=== PATIENT | male | born 1965 | race Caucasian/White ===

== ENCOUNTER 2016-12-07 14:53 | Emergency (ER) | payer MEDICARE, MEDICAID ==
[~2016-12-07] VITALS: Ht 185.4 cm; Wt 104.5 kg
[~2016-12-07 14:53] MED LIST: BACT800T5 PO; CEPH-460 PO; CLON0.2T PO; ULTR50TA5 PO
[2016-12-07 14:54] VITALS: BP 165/98; PULSE 82; RESP 18; TEMP 97.8; O2SAT 97
--- NOTE | 2016-12-07 15:00 | PD ---
Physical Exam Time Seen by Provider: 14:59 Narrative 51yo M c/o shards of tile in bottom of L foot x1 weeks. Denies F,V. Up to date on tetanus vaccination. Patient seen in triage. VS reviewed. Awaiting bed placement. Data Data Last Documented VS Vital Signs Date Time Temp Pulse Resp B/P Pulse Ox O2 Delivery O2 Flow Rate FiO2 12/07/16 14:54 97.8 82 18 165/98 97 Room Air MDM Supervised Visit with EARL: Tiny Patel December 07, 2016 15:00
--- NOTE | 2016-12-07 15:37 | PD ---
HPI . Left foot pain for over a week Chief Complaint: Musculoskeletal Complaint Time Seen by Provider: 15:34 Travel History International Travel<30 days: No Contact w/Intl Traveler<30days: No Traveled to known affect area: No History of Present Illness HPI 51-year-old male here with complaints of left foot pain for over a week. Patient says he was doing some tile work in his house and he thinks he may have stepped on some and it is stuck in his left foot. He tells me that he has had similar issues in the past and had to have the lumps removed. He is up to date on his tetanus. [facility] Past Medical History Diminished Hearing: No Hypertension: Yes Kidney Stones: Yes Immunizations Current: Yes Past Surgical History Tonsillectomy: Yes ( A CHILD) Social History Alcohol Use: Yes ([facility]) Tobacco Use: No Substance Use: No Allergies-Medications (Allergen,Severity, Reaction): Coded Allergies: No Known Allergies (Verified , 06/26/16) Reported Meds & Prescriptions Reported Meds & Active Scripts Active Ultram (Tramadol HCl) 50 Mg Tab 50 Mg PO Q6H PRN Keflex (Cephalexin) 500 Mg Cap 500 Mg PO Q6H 5 Days Bactrim DS (Sulfamethoxazole-Trimethoprim) 800-160 Mg Tab 1 Tab PO BID Reported Clonidine (Clonidine HCl) 0.2 Mg Tab 0.2 Mg PO BID Review of Systems General / Constitutional: No: Fever Eyes: No: Visual changes HENT: No: Headaches Cardiovascular: No: Chest Pain or Discomfort Respiratory: No: Shortness of Breath Gastrointestinal: No: Abdominal Pain Genitourinary: No: Dysuria Musculoskeletal: Positive: Pain (left foot pain) Skin: No Rash Neurologic: No: Weakness Psychiatric: No: Depression Endocrine: No: Polydipsia Hematologic/Lymphatic: No: Easy Bruising Physical Exam Narrative GENERAL: AAO x 3, no acute distress, Well-nourished, Disheveled appearance. SKIN: Warm and dry. No visible rashes or bruising. No visible abnormality of the feet bilaterally. Left foot without any evidence of foreign body or wound. No palpable masses or lumps. Patient does have tenderness on the plantar surface of his left midfoot area. HEAD: Normocephalic and atraumatic. EYES: No scleral icterus. No injection or drainage. ENT: No nasal drainage noted. Mucous membranes pink. Airway patent. NECK: Supple, trachea midline. No JVD. CARDIOVASCULAR: Regular rate and rhythm without murmurs, gallops, or rubs. RESPIRATORY: Breath sounds equal bilaterally. No accessory muscle use. No rhonchi or rales. GASTROINTESTINAL: Abdomen soft, non-tender, nondistended. EXTREMITIES: No cyanosis or edema. Full range of motion bilateral feet. Toes move normally bilaterally. Tenderness to the plantar surface of the midfoot left side. NEURO: strength in b/l LE 5/5 BACK: Nontender without obvious deformity. No CVA tenderness. PSYCH: AAO x 3, normal affect. Data Data Last Documented VS Vital Signs Date Time Temp Pulse Resp B/P Pulse Ox O2 Delivery O2 Flow Rate FiO2 12/07/16 14:54 97.8 82 18 165/98 97 Room Air Orders Foot, Complete ([id number]) (12/07/16 16:05) MDM Medical Decision Making Medical Screen Exam Complete: Yes Emergency Medical Condition: Yes Medical Record Reviewed: Yes Differential Diagnosis Left foot pain acute on chronic, less likely foreign body, start of a plantar wart Narrative Course 51-year-old male here with complaints of left foot pain and possible foreign body. I've done a full examination of his foot and I do not see any evidence of foreign body, wound or abnormality. I'll check an x-ray to rule out any type of foreign body that is evident on x- ray. I've explained to patient that unfortunately I cannot go and perform exploratory surgery looking for foreign bodies within his plantar surface of his foot. If x-rays are negative, he will need to follow-up with the fur operator for further workup and treatment. I believe he has early plantar's warts. He can use [id number] Tylenol or Motrin as needed. Patient verbalized understanding of instructions, questions were answered, and thanked me for their care. I advised them if their condition worsens, please return to the nearest emergency room for further care. Diagnosis Primary Impression: Left foot pain Patient Instructions: General Instructions Additional Instructions: You can use [id number] Tylenol or Motrin as needed for pain. Please follow-up with a fur operator for further workup and recommendations. Disposition: 01 DISCHARGE HOME Condition: Stable Kasia Cates December 07, 2016 15:37 Kasia Cates December 07, 2016 15:37
--- NOTE | 2016-12-07 16:23 | RADRPT ---
EXAM DATE/TIME: 12/07/2016 16:10 [facility] COMPARISON: No previous studies available for comparison. INDICATIONS : Foreign body, left foot pain. MEDICAL HISTORY : None. SURGICAL HISTORY : None. ENCOUNTER: Initial ACUITY: 1 week PAIN SCORE: 10/10 LOCATION: Left middle plantar surface. FINDINGS: There is mild arthritic change most notably at the first MTP joint. A small plantar heel spur is iden tified. There is no evidence of fracture, dislocation or bony destruction. No radiodense foreign body is appreciated. CONCLUSION: No acute bony findings Dominic Quiles MD on December 07, 2016 at 16:21 Board Certified Radiologist. This report was verified electronically.
== END 2016-12-07 16:42 | disposition home or self-care (01) ==
LOC: NEPK 14:53
DX: M79.672 Pain in left foot (principal); I10 Essential (primary) hypertension
CPT/HCPCS: 73630; 99283

== ENCOUNTER 2016-12-22 17:58 | Emergency (ER) | payer MEDICARE, MEDICAID ==
[~2016-12-22] VITALS: Ht 185.4 cm; Wt 105.0 kg
[2016-12-22 18:00] VITALS: BP 206/106; PULSE 70; RESP 20; TEMP 97.4; O2SAT 98
--- NOTE | 2016-12-22 18:09 | PD ---
Physical Exam Date Seen by Provider: Dec 22, 2016 Time Seen by Provider: 18:07 Data Data Last Documented VS Vital Signs Date Time Temp Pulse Resp B/P Pulse Ox O2 Delivery O2 Flow Rate FiO2 12/22/16 18:00 97.4 70 20 206/106 98 Room Air [facility] Supervised Visit with EARL: No Narrative Course 51 YO male with complaint of "broken finger" on the left hand. Caught finger under a heavy box this morning. Also requests BP med refill. Vitals reviewed. Awaiting bed placement. Kristin Haile Dec 22, 2016 18:09
[2016-12-22 20:22] VITALS: BP 221/109; PULSE 81; RESP 20; TEMP 97.7; O2SAT 97
[2016-12-22] MEDS ORDERED: oxyCODONE/ACETAMINOPHEN 5 MG/325 MG TAB PO ONE (21:00)
[2016-12-22] MEDS ORDERED: cloNIDine HCL 0.1 MG TAB PO ONE (21:00)
--- NOTE | 2016-12-22 21:05 | PD ---
HPI Chief Complaint: Injury Time Seen by Provider: 20:25 Travel History International Travel<30 days: No Contact w/Intl Traveler<30days: No Traveled to known affect area: No History of Present Illness HPI 51yo M with PMH of HTN presents to the ED with c/o left hand pain. States pain is his left middle finger when he was lifting boxes and thinks he pulled it a certain way. Pain is worst with movement. Pt also has history of HTN and was on clonidine 0.3mg 2 years ago and has not had any medication since then. Pt has intermittent, occipital headache for 1 month. Denies any fever, chest pain , sob, n/v, abdominal pain, focal weakness or numbness. PFSH Past Medical History Cardiovascular Problems: Yes (HTN) Diminished Hearing: No Hypertension: Yes Kidney Stones: Yes Immunizations Current: Yes Past Surgical History Tonsillectomy: Yes ( A CHILD) Social History Alcohol Use: Yes ([facility]) Tobacco Use: No Substance Use: No Allergies-Medications (Allergen,Severity, Reaction): Coded Allergies: No Known Allergies (Verified , 12/22/16) Reported Meds & Prescriptions Reported Meds & Active Scripts Active No Active Prescriptions or Reported Medications Review of Systems Except as stated in HPI: all other systems reviewed are Neg Physical Exam Narrative GENERAL: 51yo M not in distress. SKIN: Focused skin assessment warm/dry. HEAD: Atraumatic. Normocephalic. EYES: Pupils equal and round at 3mm bilaterally. EOMI. No scleral icterus. No injection or drainage. ENT: No nasal bleeding or discharge. Mucous membranes pink and moist. NECK: Trachea midline. No JVD. CARDIOVASCULAR: Regular rate and rhythm. No murmur appreciated. RESPIRATORY: No accessory muscle use. Clear to auscultation. Breath sounds equal bilaterally. GASTROINTESTINAL: Abdomen soft, non-tender, nondistended. No rebound tenderness or guarding. MUSCULOSKELETAL: Left hand: Mild erythema in left 3rd MCP. +TTP. No fluctuance. Able to flex and extend in all digits. cap refill <2sec. Sensation intact. Muscle strength intact. NEUROLOGICAL: Awake and alert. No obvious cranial nerve deficits. Motor grossly within normal limits. Normal speech. PSYCHIATRIC: Appropriate mood and affect; insight and judgment normal. Data Data Last Documented VS Vital Signs Date Time Temp Pulse Resp B/P Pulse Ox O2 Delivery O2 Flow Rate FiO2 12/22/16 20:22 77 18 97 Room Air 12/22/16 20:22 97.7 221/[address] Brain W/O Iv Contrast(Rout) (12/22/16 ) Hand, Limited (2vws) (12/22/16 ) Clonidine (Catapres) (12/22/16 21:00) Oxycodone-Acetamin 5-325 Mg (Percocet (12/22/16 21:00) MDM Medical Decision Making Medical Screen Exam Complete: Yes Emergency Medical Condition: Yes Differential Diagnosis Contusion vs. fracture vs. hypertensive emergency Narrative Course 51yo M with HTN noncompliant with medication here with c/o left third finger pain after lifting a box. States his finger went sideways which may have been a dislocation but now it is in the right place. There is mild erythema on 3rd MCP so it may be early cellulitis. Will cover with a few days of antibiotics. Xray of left hand showed arthritis changes. No evidence of acute bony injury. CT brain showed normal examination. Pt given clonidine 0.1mg and percocet 5- 325. Pt reevaluated at bedside and pain has improved. Headache has resolved. No focal neurologic deficits. Headache may be related to elevated blood pressure. Repeat blood pressure is 164/99. Pt now states he was also on lisinopril 10mg before so will prescribe lisinopril for a few days until pt can follow up with PMD. Diagnosis Primary Impression: Uncontrolled hypertension Patient Instructions: General Instructions Departure Forms: Tests/Procedures Additional Instructions: Please follow up with your primary care physician in 3-7 days regarding your blood pressure control. There is mild erythema on your finger, will start to on antibiotics but return to the ED if symptoms worsen. Med/Other Pt SpecificInfo: Prescription(s) given Scripts Lisinopril 10 Mg Tab10 Mg PO DAILY 14 Days Ref 0 Prov:Anel Chung DO 12/22/16 Ibuprofen 600 Mg [id number] Mg PO Q8HR PRN (PAIN) #20 TAB Ref 0 Prov:Lyn Chungie 12/22/16 Cephalexin (Keflex)500 Mg [id number] Mg PO Q12H 7 Days Ref 0 Prov:Anel Chung DO 12/22/16 Disposition: 01 DISCHARGE HOME Condition: Stable Anel Chung DO Dec 22, 2016 21:05
--- NOTE | 2016-12-22 21:44 | RADRPT ---
EXAM DATE/TIME: 12/22/2016 20:52 [facility] COMPARISON: No previous studies available for comparison. INDICATIONS : Left posterior hand pain, injured moving boxes MEDICAL HISTORY : None. SURGICAL HISTORY : None. ENCOUNTER: Initial ACUITY: 1 day PAIN SCORE: 9/10 LOCATION: Left Hand FINDINGS: There is no evidence of fracture or dislocation. There are arthritic changes most notably involving t he fourth finger and the thumb carpal joint region. CONCLUSION: Arthritic changes. No evidence of acute bony injury Dominic Quiles MD on December 22, 2016 at 21:42 Board Certified Radiologist. This report was verified electronically.
--- NOTE | 2016-12-22 21:46 | RADRPT ---
EXAM DATE/TIME: 12/22/2016 20:55 [facility] COMPARISON: No previous studies available for comparison. INDICATIONS : Patient complains of headache. RADIATION DOSE: 41.76 CTDIvol (mGy) MEDICAL HISTORY : Hypertension. SURGICAL HISTORY : None. ENCOUNTER: Initial ACUITY: 1 day PAIN SCALE: 5/10 LOCATION: cranial TECHNIQUE: Multiple contiguous axial images were obtained of the head. Using automated exposure control and adj ustment of the mA and/or kV according to patient size, radiation dose was kept as low as reasonably a chievable to obtain optimal diagnostic quality images. FINDINGS: CEREBRUM: The ventricles are normal for age. No evidence of midline shift, mass lesion, hemorrhage or acute in farction. No extra-axial fluid collections are seen. POSTERIOR FOSSA: The cerebellum and brainstem are intact. The 4th ventricle is midline. The cerebellopontine angle i s unremarkable. EXTRACRANIAL: The visualized portion of the orbits is intact. SKULL: The calvaria is intact. No evidence of skull fracture. CONCLUSION: Normal examination. Dominic Quiles MD on December 22, 2016 at 21:42 Board Certified Radiologist. This report was verified electronically.
[2016-12-22 22:14] VITALS: BP 148/93; PULSE 72; RESP 18; O2SAT 97
[2016-12-22] MEDS ORDERED: CEPH-460 PO (22:17)
[2016-12-22] MEDS ORDERED: IBUP-232 PO (22:17)
[2016-12-22] MEDS ORDERED: LISI10TA3 PO (22:17)
== END 2016-12-22 22:33 | disposition home or self-care (01) ==
LOC: NEPE 17:58
DX: I10 Essential (primary) hypertension (principal); M79.642 Pain in left hand; R51 Headache
CPT/HCPCS: 70450; 73120

== ENCOUNTER 2018-05-07 01:02 | Observation (INO) ==
[2018-05-07] MEDS ORDERED: Sodium Chlor 0.9% Inj 500 ML IV.SIG ONE (01:24)
--- NOTE | 2018-05-07 01:32 | ED ---
HPI General Chief complaint: Chest Pain Stated complaint: chest pain Time Seen by Provider: 05/07/18 01:09 Source: patient Mode of arrival: EMS Limitations: no limitations History of Present Illness HPI narrative: The patient is a 53 year old male who presents to the [facility] emergency department with a history of chest pain that he reports began at approximately midnight when he was discharged from the [facility]. The patient reports that the pain is in the left side of his chest. He reports that it feels like his heart muscle is "swollen". He denies having any associated shortness of breath. He reports that the pain radiates into the left arm. He denies having any vomiting, however he reports having associated nausea without vomiting. He denies having any diaphoresis. He reports that he was arrested earlier in the day at approximately 3-4 PM. He reports that earlier in the day he also is having a headache. He reports that the headache has continued. He reports that the headache is bitemporal. He reports that he had headaches in the past related to his high blood pressure. He reports that he was on clonidine in the past, however he has not been on any blood pressure medication in the last few years. He denies any prior history of hyperlipidemia or diabetes mellitus. He denies any family history of heart disease. He denies any prior history of coronary artery disease. He denies having any prior history of DVT or PE. On review of systems otherwise, the patient denies having any known recent fevers, cough, congestion, neck pain, abdominal pain, diarrhea, urinary symptoms, or neurologic symptoms. Related Data Home Medications Medication Instructions Recorded Confirmed No Known Home Medications 05/07/18 05/07/18 Allergies Allergy/AdvReac Type Severity Reaction Status Date / Time No Known Allergies Allergy Verified 05/07/18 01:08 Review of Systems ROS: all other systems reviewed are negative [facility] Medical History Medical History Hypertension (Acute) Social History Social History Substance History: No History of Abuse Second Hand Smoke Exposure: No Smoking Status: Never smoker How Often Do You Have a Drink Containing Alcohol: 2 to 4 times a month Recent Travel in [facility] within the Last 8 Weeks: No Recent Out of Country Travel within the Last 8 Weeks: No Immunization History Tetanus Immunization: <5 Years Tetanus Immunization Year if Known: 2016 Exam Const General: cooperative, no acute distress and well developed Nutritional Appearance: well nourished Orientation: alert, awake and oriented x3 [facility] Head: normocephalic and atraumatic Nose: no nasal discharge and no epistaxis Mouth: moist mucous membranes Throat: posterior oropharynx normal and uvula midline Eyes Sclera: normal sclerae Pupils: PERRL Neck Neck: no meningeal signs, trachea midline and no JVD Resp Effort & Inspection: no use of accessory muscles Auscultation: clear to auscultation bilaterally Cardio Rate: regular rate Rhythm: regular rhythm Heart Sounds: no murmurs GI Inspection: non-distended Palpation: soft, no hepatosplenomegaly and nontender Skin General: dry skin (warm) Neuro General: alert, awake, oriented x3 and other (grossly non-focal.) Speech: speech normal Motor: no movement abnormalities noted Extrem General: normal to inspection (2+ pulses in all 4 extremities.), no calf tenderness, no clubbing, no cyanosis and no edema Psych Mood: congruent mood Affect: normal affect Judgment: judgment good Course Initial Documented Vital Signs Pulse Rate 88 05/07/18 01:04 Respiratory Rate 17 05/07/18 01:04 Blood Pressure 179/101 H 05/07/18 01:04 Pulse Oximetry 97 05/07/18 01:04 Last Documented Vital Signs Temperature 98.8 F 05/07/18 01:08 Pulse Rate 75 05/07/18 04:00 Respiratory Rate 16 05/07/18 04:00 Blood Pressure 156/85 H 05/07/18 04:00 Pulse Oximetry 97 05/07/18 04:00 Medical Decision Making [facility] Narrative Medical decision making narrative: During the course of the patient's emergency department visit, the patient's history, examination, and differential diagnosis were reviewed with the patient. The patient was placed on a cardiac monitor technician with oximetry and frequent blood pressure monitoring. The patient had IV access obtained and blood work sent for analysis. A diagnostic evaluation was started regarding the patient's chest pain. The patient was initially provided aspirin 324 mg p.o. was given by ambulance services prior to arrival along with sublingual nitroglycerin x3. Nitroglycerin paste was applied to the chest wall in the emergency department. The patient was given Zofran 4 mg IV for nausea. The patient's diagnostic studies are remarkable for a white count of 5.6, hemoglobin 14.7, platelets 74 with 71.5 neutrophils, PT 12, PTT 25.5. Platelet count is compared to a prior platelet count done at this facility and was low at that time at 84 consistent with chronic thrombocytopenia. Chemistries remarkable for a normal troponin I, lipase is elevated at 623, mildly elevated at 623. Patient denies having any abdominal pain, however he does have nausea. A CT scan of the abdomen and pelvis was ordered to evaluate for possible underlying and chronic inflammation. CPK within normal limits, chloride 108, calcium 8.2, AST 79, ALT 99 suspicious for viral hepatitis. The patient's chest x-ray reveals no acute cardiopulmonary disease, CT scan of the brain shows no acute abnormality, CT scan of the abdomen and pelvis reveals evidence of cirrhosis with an enlarged cirrhotic appearing liver, splenomegaly with varices, nonobstructing renal stone, left renal cyst. No signs of pancreatic abnormality. The patient will be admitted to the chest pain center for rule out serial cardiac enzyme protocol followed by stress testing. The patient's results were discussed with the patient, including the plan of care. I explained that further testing and/ or monitoring is indicated based on the patient's history, examination, and/ or laboratory findings. Therefore, I recommended admission for additional evaluation. The patient expressed understanding and was agreeable with this plan. The patient was admitted to the hospital in stable condition and sent to a bed under the care of the [facility]. Medical Screen Exam Complete: Yes Emergency Medical Condition: Yes Differential Diagnosis Differential Diagnosis: Acute coronary syndrome, versus pneumothorax, versus hypertensive emergency Medical Records Medical records reviewed: Yes I reviewed the patient's medical records. Lab Data Lab results reviewed: Yes I reviewed the patient's lab results. Result diagrams: 05/07/18 01:30 05/07/18 01:30 Lab Results 05/07/18 05/07/18 05/07/18 Range/Units 01:30 01:30 01:30 WBC 5.6 (4.0-11.0) th/mm3 RBC 4.72 (4.50-5.90) mil/mm3 Hgb 14.7 (13.0-17.0) gm/dL Hct 42.1 (39.0-51.0) % MCV 89.2 (80.0-100.0) fL MCH 31.1 (27.0-34.0) pg MCHC 34.9 (32.0-36.0) % RDW 14.8 (11.6-17.2) % Plt Count 74 L (150-450) th/mm3 MPV 10.1 (7.0-11.0) fL Prelim Diff (Auto) Slide review pending Neut % (Auto) 71.5 H (16.0-70.0) % Lymph % (Auto) 19.6 (9.0-44.0) % [place] % (Auto) 6.3 (0.0-8.0) % Eos % (Auto) 2.1 (0.0-4.0) % Baso % (Auto) 0.5 (0.0-2.0) % Neut # (Auto) 4.0 (1.8-7.7) th/mm3 Lymph # (Auto) 1.1 (1.0-4.8) th/mm3 [place] # (Auto) 0.4 (0.0-0.9) th/mm3 Eos # (Auto) 0.1 (0.0-0.4) th/mm3 Baso # (Auto) 0.0 (0.0-0.2) th/mm3 WBC Differential . Diff Scan Auto diff confirmed Differential Comment . Platelet Estimate Low L (Normal) Platelet Morphology Normal (Normal) PT 12.0 H (9.8-11.6) sec INR 1.2 Ratio APTT 25.5 (24.3-30.1) sec Sodium 141 (136-145) meq/L Potassium 3.9 (3.5-5.1) meq/L Chloride 108 H (98-107) meq/L Carbon Dioxide 27.9 (21.0-32.0) meq/L Anion Gap 5 (5-15) meq/L BUN 14 (7-18) mg/dL Creatinine 0.80 (0.60-1.30) mg/dL Estimated GFR Greater than 89 (>89) mL/min Random Glucose 90 (74-106) mg/dL Calcium 8.2 L (8.5-10.1) mg/dL Magnesium 2.0 (1.5-2.5) mg/dL Total Bilirubin 0.6 (0.2-1.0) mg/dL AST 79 H (15-37) U/L ALT 99 H (12-78) U/L Alkaline Phosphatase 88 (45-117) U/L Total Creatine Kinase 154 (39-308) U/L CK-MB (CK-2) 1.9 (0.5-3.6) ng/mL Troponin I Less than 0.02 L (0.02-0.05) ng/mL Total Protein 7.5 (6.4-8.2) g/dL Albumin 3.6 (3.4-5.0) g/dL Lipase 623 H (73-393) U/L 05/07/18 Range/Units 04:40 WBC (4.0-11.0) th/mm3 RBC (4.50-5.90) mil/mm3 Hgb (13.0-17.0) gm/dL Hct (39.0-51.0) % MCV (80.0-100.0) fL MCH (27.0-34.0) pg MCHC (32.0-36.0) % RDW (11.6-17.2) % Plt Count (150-450) th/mm3 MPV (7.0-11.0) fL Prelim Diff (Auto) Neut % (Auto) (16.0-70.0) % Lymph % (Auto) (9.0-44.0) % [place] % (Auto) (0.0-8.0) % Eos % (Auto) (0.0-4.0) % Baso % (Auto) (0.0-2.0) % Neut # (Auto) (1.8-7.7) th/mm3 Lymph # (Auto) (1.0-4.8) th/mm3 [place] # (Auto) (0.0-0.9) th/mm3 Eos # (Auto) (0.0-0.4) th/mm3 Baso # (Auto) (0.0-0.2) th/mm3 WBC Differential Diff Scan Differential Comment Platelet Estimate (Normal) Platelet Morphology (Normal) PT (9.8-11.6) sec INR Ratio APTT (24.3-30.1) sec Sodium (136-145) meq/L Potassium (3.5-5.1) meq/L Chloride (98-107) meq/L Carbon Dioxide (21.0-32.0) meq/L Anion Gap (5-15) meq/L BUN (7-18) mg/dL Creatinine (0.60-1.30) mg/dL Estimated GFR (>89) mL/min Random Glucose (74-106) mg/dL Calcium (8.5-10.1) mg/dL Magnesium (1.5-2.5) mg/dL Total Bilirubin (0.2-1.0) mg/dL AST (15-37) U/L ALT (12-78) U/L Alkaline Phosphatase (45-117) U/L Total Creatine Kinase 126 (39-308) U/L CK-MB (CK-2) (0.5-3.6) ng/mL Troponin I Less than 0.02 L (0.02-0.05) ng/mL Total Protein (6.4-8.2) g/dL Albumin (3.4-5.0) g/dL Lipase (73-393) U/L Imaging Data Radiologist's impression: Chest X-Ray 05/07/18 01:24 CONCLUSION: No acute abnormality is seen. Head CT 05/07/18 01:24 CONCLUSION: No intracranial abnormality is seen. . Abdomen/Pelvis CT 05/07/18 02:29 CONCLUSION: 1. Enlarged cirrhotic appearing liver with suspected hepatic steatosis. 2. Splenomegaly with varices. The splenomegaly is likely from portal hypertension. 3. Nonobstructing renal stone seen bilaterally. 4. Left renal cysts ECG Data Attestation: I personally reviewed and interpreted this ECG as follows: Interpretation: The patient had an EKG done on arrival. The patient's EKG shows a sinus rhythm heart rate of 77, QRS duration 102 ms, QTC [address] segment elevation. Discharge Plan Discharge Disposition Patient Disposition: 30 Still Patient Discharge Details Diagnosis: Chest pain, rule out acute myocardial infarction Physicians Team ED Provider: Mel Ryan Primary Care Provider: Primary Care Georgette Levy Attending Provider: Victor Manuel Clarke Status ED Status: Left Department Discharge Information Discharge Date/Time: 05/07/18 05:00
--- NOTE | 2018-05-07 01:40 | XR ---
EXAM DATE: 05/07/2018 1:24 AM EDT AGE/SEX: 53 years / Male INDICATIONS: Chest pain and headache. CLINICAL DATA: This is the patient's initial encounter. Patient reports that signs and symptoms have been present for 1 day and indicates a pain score of 6/10. MEDICAL/SURGICAL HISTORY: Hypertension. None. COMPARISON: No prior exams available for comparison. FINDINGS: The heart size is normal. The lungs are free of focal consolidation. There is a calcified granuloma a t the lateral left base. No effusion is seen. There is degenerative change at the glenohumeral joints . CONCLUSION: No acute abnormality is seen. Electronically signed by: Dominic Falcon MD 05/07/2018 1:39 AM EDT
[2018-05-07 01:48] LABS: Baso % (Auto) 0.5 % (0.0-2.0); Eos # (Auto) 0.1 th/mm3 (0.0-0.4); Eos % (Auto) 2.1 % (0.0-4.0); Hematocrit 42.1 % (39.0-51.0); Hemoglobin 14.7 gm/dL (13.0-17.0); Lymph # (Auto) 1.1 th/mm3 (1.0-4.8); Lymph % (Auto) 19.6 % (9.0-44.0); Mean Corpuscular HGB Conc 34.9 % (32.0-36.0); Mean Corpuscular Hemoglobin 31.1 pg (27.0-34.0); Mean Corpuscular Volume 89.2 fL (80.0-100.0); Mean Platelet Volume 10.1 fL (7.0-11.0); Mono # (Auto) 0.4 th/mm3 (0.0-0.9); Mono % (Auto) 6.3 % (0.0-8.0); Neut % (Auto) 71.5 % (16.0-70.0); Platelet Count 74 th/mm3 (150-450); Red Blood Count 4.72 mil/mm3 (4.50-5.90); Red Cell Distribution Width 14.8 % (11.6-17.2); White Blood Count 5.6 th/mm3 (4.0-11.0)
[2018-05-07 01:55] LABS: Activated Partial Thrombo Time 25.5 sec (24.3-30.1); INR 1.2 Ratio
[2018-05-07 02:14] LABS: Alanine Aminotransferase 99 U/L (12-78); Albumin 3.6 g/dL (3.4-5.0); Anion Gap 5 meq/L (5-15); Aspartate Aminotransferase 79 U/L (15-37); Blood Urea Nitrogen 14 mg/dL (7-18); Calcium 8.2 mg/dL (8.5-10.1); Carbon Dioxide 27.9 meq/L (21.0-32.0); Chloride 108 meq/L (98-107); Glomerular Filtration Rate Greater Than 89 mL/min (>89); Glucose,Random 90 mg/dL (74-106); Lipase 623 U/L (73-393); Potassium 3.9 meq/L (3.5-5.1); Sodium 141 meq/L (136-145)
[2018-05-07 02:18] LABS: Alkaline Phosphatase 88 U/L (45-117); Creatine Kinase 154 U/L (39-308); Total Protein 7.5 g/dL (6.4-8.2)
[2018-05-07 02:30] LABS: Creatine Kinase MB 1.9 ng/mL (0.5-3.6)
[2018-05-07 02:44] LABS: Platelet Morphology Normal (Normal)
--- NOTE | 2018-05-07 03:00 | CT ---
EXAM DATE: 05/07/2018 1:28 AM EDT AGE/SEX: 53 years / Male INDICATIONS: Hypertensive headache. CLINICAL DATA: This is the patient's initial encounter. Patient reports that signs and symptoms have been present for 1 day and indicates a pain score of 7/10. MEDICAL/SURGICAL HISTORY: Hypertension. None. RADIATION DOSE: 53.48 CTDI (mGy) COMPARISON: No prior exams available for comparison. TECHNIQUE: CT of the head without contrast. Using automated exposure control and adjustment of the mA and/or kV according to patient size, radiation dose was kept as low as reasonably achievable to ob tain optimal diagnostic quality images. DICOM format image data is available electronically for revi ew and comparison. FINDINGS: Cerebrum: The ventricles are normal for age. No evidence of midline shift, mass lesion, hemorrhage or acute infarction. No extraaxial fluid collections are seen. Posterior Fossa: The cerebellum and brainstem are intact. The 4th ventricle is midline. The cerebe llopontine angle is unremarkable. Extracranial: The visualized portion of the orbits is intact. Skull: The calvaria is intact. No evidence of skull fracture. There is a nonspecific small area of focal sclerosis in the left parietal bone. CONCLUSION: No intracranial abnormality is seen. . Electronically signed by: Dominic Falcon MD 05/07/2018 2:58 AM EDT
--- NOTE | 2018-05-07 03:05 | CT ---
EXAM DATE: 05/07/2018 2:32 AM EDT AGE/SEX: 53 years / Male INDICATIONS: Abdominal pain. CLINICAL DATA: This is the patient's initial encounter. Patient reports that signs and symptoms have been present for 1 day and indicates a pain score of 8/10. MEDICAL/SURGICAL HISTORY: Hypertension. None. ORAL CONTRAST: No oral contrast ingested. RADIATION DOSE: 14.25 CTDI (mGy) COMPARISON: No prior exams available for comparison. TECHNIQUE: Multiple contiguous axial images were obtained through the abdomen and pelvis following b olus infusion of 96 ml Omnipaque 350 (iohexol) nonionic water-soluble contrast as a single exam dos e. No oral contrast ingested. Using automated exposure control and adjustment of the mA and/or kV ac cording to patient size, radiation dose was kept as low as reasonably achievable to obtain optimal di agnostic quality images. DICOM format image data is available electronically for review and comparis on. FINDINGS: Lower Lungs: The visualized lower lungs are clear. Liver: The liver is enlarged. There is diffuse decreased attenuation of the liver. Liver appears to h ave a somewhat nodular surface. There is hypertrophy of the caudate. These changes are concerning for cirrhosis. Spleen: The spleen is diffusely enlarged measuring 17.5 cm in length. There are varices seen around the spleen. Pancreas: Unremarkable without mass or calcification. Kidneys: There are small nonobstructing renal stone seen bilaterally measuring up to [address] stone is seen on the left side.. No hydronephrosis is seen. There is a 5 cm cyst seen off the post erior inferior lateral aspect of the left kidney. There is 2.2 cm cyst at the central left kidney. Adrenal Glands: Unremarkable. Aorta: The aorta and proximal iliac vessels are grossly unremarkable without aneurysmal dilation. Bowel/Mesentery: The bowel loops are grossly unremarkable. The cecum and sigmoid colon have a normal configuration. The appendix appears normal. Abdominal Wall: Intact. Retroperitoneum: No evidence of adenopathy in the retrocrural, para-aortic, or deep pelvic regions. Bladder: Contours are smooth. Reproductive Organs: No abnormal masses seen. Prostatic calcifications are present. Inguinal: The inguinal region is unremarkable without evidence of adenopathy. Bony Structures: There is degenerative change at the lower lumbar spine. CONCLUSION: 1. Enlarged cirrhotic appearing liver with suspected hepatic steatosis. 2. Splenomegaly with varices. The splenomegaly is likely from portal hypertension. 3. Nonobstructing renal stone seen bilaterally. 4. Left renal cysts Electronically signed by: Dominic Falcon MD 05/07/2018 3:03 AM EDT
[2018-05-07] MEDS ORDERED: Morphine Inj 4 MG/ML Vial IV.PUSH PRN (04:27)
[2018-05-07] MEDS ORDERED: Acetaminophen 500 MG Tablet PO PRN (04:27)
[2018-05-07 05:26] LABS: Creatine Kinase 126 U/L (39-308)
[2018-05-07] MEDS: Sod Chloride 0.9% Inj 1,000 ML IV.CONT SCH ×2 (05:45→19:15)
[2018-05-07 08:40] LABS: Creatine Kinase 119 U/L (39-308)
--- NOTE | 2018-05-07 08:40 | P.HPCA ---
History of Present Illness Primary Care Physician: No Primary Care Physician Chief Complaint: Chest pain History of Present Illness: This is a 53-year-old male that presents to ED with complaint of developing chest pain around midnight. States the discomfort was in left side of the chest and was a soreness. It has been there constantly, worsened with coughing and pressing on it. The discomfort is not as tense at this time. Also complaining of nausea, states is been close to emesis several times. Denies shortness of breath or diaphoresis. Denies abdominal pain. States he does get nauseous at times after eating. Denies diarrhea constipation. Denies blood in stool. Denies any prior history of any liver or spleen issues. Cannot recall ever having a GI workup. States is a non-smoker. Denies illicit drug use. States he rarely has alcohol. Cannot recall any immediate family history of heart disease. Denies hypertension, hyperlipidemia, diabetes, and known CAD. - Diagnosis (1) Chest pain (2) Hepatosplenomegaly (3) Elevated lipase Review of Systems General: Patient denies fevers, chills, and recent travel. HEENT: Patient denies headache, sore throat, difficulty swallowing. Cardiovascular: Has the chest discomfort as mentioned above. Denies sensation of heart beating rapidly or irregularly. No syncope. Denies diaphoresis. Respiratory: Denies shortness of breath or inspirational chest discomfort. Denies coughing wheezing or hemoptysis. GI: Complains of nausea and states he has been closed emesis a couple times but has not vomited. Patient denies nausea, vomiting, diarrhea, abdominal pain, bloody stools. Musculoskeletal: Patient denies joint pain or edema. Denies calf pain or edema. Neurovascular: Patient denies numbness, tingling, weakness in extremities. Also complained of headache that is since resolved. Endocrine: Denies polyuria and polydipsia. Hematologic: Denies easy bruising. Skin: Denies rash or itching. PMFSH - History History Provided By: Patient - Medical History Medical History: Medical History (Last Reviewed 05/07/18 @ 01:31 by Mel Ryan MD) Hypertension - Tobacco History Second Hand Smoke Exposure: No Smoking Status: Never smoker - Alcohol History How Often Do You Have a Drink Containing Alcohol: 2 to 4 times a month - Substance Use History Substance History: No History of Abuse - Travel History Recent Travel in the [facility] Within the Last 8 Weeks: No Recent Travel Out of the Country Within the Last 8 Weeks: No - Immunization History Tetanus Immunization: <5 Years Tetanus Immunization Year if Known: 2015 Medications and Allergies Active Medications: Active Medications Acetaminophen (Tylenol) 500 mg PO Q4H PRN PRN Reason: HEADACHE Sodium Chloride (Ns Inj) 1,000 mls @ 100 mls/hr IV.CONT .Q10H EDMUNDO Last Admin: 05/07/18 05:45 Dose: 100 mls/hr Morphine Sulfate (Morphine Inj) 2 mg IV.PUSH Q4H PRN PRN Reason: PAIN SCALE 8 TO 10 Ondansetron HCl (Zofran Inj) 4 mg IV.PUSH Q6H PRN PRN Reason: NAUSEA Sodium Chloride (Ns Flush) 2 ml IV.FLUSH UNSCH PRN PRN Reason: FLUSH AFTER USING IV ACCESS Last Admin: 05/07/18 01:46 Dose: 2 ml Sodium Chloride (Ns Flush) 2 ml IV.FLUSH BID EDMUNDO Sodium Chloride (Ns Flush) 2 ml IV.FLUSH PRN PRN PRN Reason: FLUSH AFTER USING IV ACCESS Allergies Allergy/AdvReac Type Severity Reaction Status Date / Time No Known Allergies Allergy Verified 05/07/18 01:08 Home Medications Medication Instructions Recorded Confirmed Type No Known Home Medications 05/07/18 05/07/18 History Exam Vital signs: Vital Signs 05/07/18 01:04 05/07/18 01:08 05/07/18 02:00 Temperature 98.8 F Pulse Rate 88 70 Respiratory Rate 17 16 Blood Pressure 179/101 H 149/94 H Pulse Oximetry 97 98 05/07/18 03:30 05/07/18 04:00 05/07/18 07:44 Temperature 98.3 F Pulse Rate 82 75 71 Respiratory Rate 16 16 16 Blood Pressure 152/78 H 156/85 H 135/71 Pulse Oximetry 97 97 93 L Intake & Output 05/06/18 05/07/18 05/07/18 18:59 06:59 18:59 Intake Total 500 / 500 Output Total 0 / 0 Balance 500 / 500 Weight 103.419 kg Intake: IV 500 / 500 NS Inj 500 ML @ Wide Open IV. 500 / 500 SIG ONCE ONE Rx#:[id number] Output: Urine 0 / 0 Other: Date of Last Bowel Movement 05/06/18 Narrative: GENERAL: This is a well-nourished, well-developed patient, in no apparent distress. Patient speaks in clear complete sentences. Patient is pleasant. HEENT: Head is atraumatic and normocephalic. Neck is supple without lymphadenopathy and trachea is midline. No JVD or carotid bruits. CARDIOVASCULAR: Regular rate and rhythm without murmurs, gallops, or rubs. RESPIRATORY: Clear to auscultation. Breath sounds equal bilaterally. No wheezes , rales, or rhonchi. Chest wall is tender. No use of accessory muscles. GASTROINTESTINAL: Abdomen is nontender, nondistended. Abdomen soft. No obvious pulsatile mass or bruit. No CVA tenderness. Strong femoral pulses bilaterally. Normal bowel sounds in all quadrants. MUSCULOSKELETAL: Patient is moving upper and lower extremities freely. No calf tenderness or edema, no Homans sign. Strong pulses in upper and lower extremities. NEUROLOGICAL: Patient is alert and oriented. Cranial nerves 2-12 are grossly intact. No focal deficits and speech is clear. SKIN: No rash and turgor is normal. Results 05/07/18 01:30 05/07/18 01:30 Cardiac Enzymes 05/07/18 05/07/18 Range/Units 01:30 04:40 AST 79 H (15-37) U/L CK-MB (CK-2) 1.9 (0.5-3.6) ng/mL Troponin I Less than 0.02 L Less than 0.02 L (0.02-0.05) ng/mL Coagulation 05/07/18 Range/Units 01:30 PT 12.0 H (9.8-11.6) sec APTT 25.5 (24.3-30.1) sec CBC 05/07/18 Range/Units 01:30 WBC 5.6 (4.0-11.0) th/mm3 RBC 4.72 (4.50-5.90) mil/mm3 Hgb 14.7 (13.0-17.0) gm/dL Hct 42.1 (39.0-51.0) % Plt Count 74 L (150-450) th/mm3 Neut # (Auto) 4.0 (1.8-7.7) th/mm3 Lymph # (Auto) 1.1 (1.0-4.8) th/mm3 Cannon # (Auto) 0.4 (0.0-0.9) th/mm3 Eos # (Auto) 0.1 (0.0-0.4) th/mm3 Baso # (Auto) 0.0 (0.0-0.2) th/mm3 Comprehensive Metabolic Panel 05/07/18 Range/Units 01:30 Sodium 141 (136-145) meq/L Potassium 3.9 (3.5-5.1) meq/L Chloride 108 H (98-107) meq/L Carbon Dioxide 27.9 (21.0-32.0) meq/L BUN 14 (7-18) mg/dL Creatinine 0.80 (0.60-1.30) mg/dL Calcium 8.2 L (8.5-10.1) mg/dL AST 79 H (15-37) U/L ALT 99 H (12-78) U/L Alkaline Phosphatase 88 (45-117) U/L Total Protein 7.5 (6.4-8.2) g/dL Albumin 3.6 (3.4-5.0) g/dL Intake and Output 05/06/18 05/07/18 05/07/18 22:59 06:59 14:59 Intake Total 500 / 500 Output Total 0 / 0 Balance 500 / 500 Intake: IV 500 / 500 NS Inj 500 ML @ Wide Open IV. 500 / 500 SIG ONCE ONE Rx#:[id number] Output: Urine 0 / 0 Other: Date of Last Bowel Movement 05/06/18 Weight 103.419 kg - Imaging and Cardiology Imaging: Impressions Chest X-Ray 05/07/18 01:24 CONCLUSION: No acute abnormality is seen. Head CT 05/07/18 01:24 CONCLUSION: No intracranial abnormality is seen. . Abdomen/Pelvis CT 05/07/18 02:29 CONCLUSION: 1. Enlarged cirrhotic appearing liver with suspected hepatic steatosis. 2. Splenomegaly with varices. The splenomegaly is likely from portal hypertension. 3. Nonobstructing renal stone seen bilaterally. 4. Left renal cysts EKG interpretations - EKG EKG shows: sinus rhythm (EKGs are sinus rhythm without significant ST segment depressions or elevations.) Caprini VTE Risk Assessment Caprini VTE Risk Assessment: No/Low Risk (score <= 1) Caprini Risk Assessment Model: Point Value = 1 Point Value = 2 Point Value = 3 Point Value = 5 Age 41-60 Minor surgery BMI > 25 kg/m2 Swollen legs Varicose veins or History of unexplained or recurrent spontaneous Oral contraceptives or hormone replacement Sepsis (< 1 month) Serious lung disease, including pneumonia (< 1 month) Abnormal pulmonary function Acute myocardial infarction Congestive heart failure (< 1 month) History of inflammatory bowel disease Medical patient at bed rest Age 61-74 Arthroscopic surgery Major open surgery (> 45 min) Laparoscopic surgery (> 45 min) Malignancy Confined to bed (> 72 hours) Immobilizing plaster cast Central venous access Age >= 75 History of VTE Family history of VTE Factor V Leiden Prothrombin [id number] Lupus anticoagulant Anticardiolipin antibodies Elevated serum homocysteine Heparin-induced thrombocytopenia Other congenital or acquired thrombophilia Stroke (< 1 month) Elective arthroplasty Hip, pelvis, or leg fracture Acute spinal cord injury (< 1 month) Prophylaxis Regimen: Total Risk Factor Score Risk Level Prophylaxis Regimen 0-1 Low Early ambulation 2 Moderate Order ONE of the following: *Sequential Compression Device (SCD) *Heparin 5000 units SQ BID 3-4 Higher Order ONE of the following medications: *Heparin 5000 units SQ TID *Enoxaparin/Lovenox 40 mg SQ daily (WT < 150 kg, CrCl > 30 mL/min) *Enoxaparin/Lovenox 30 mg SQ daily (WT < 150 kg, CrCl > 10-29 mL/min) *Enoxaparin/Lovenox 30 mg SQ BID (WT < 150 kg, CrCl > 30 mL/min) AND/OR *Sequential Compression Device (SCD) 5 or more Highest Order ONE of the following medications: *Heparin 5000 units SQ TID (Preferred with Epidurals) *Enoxaparin/Lovenox 40 mg SQ daily (WT < 150 kg, CrCl > 30 mL/min) *Enoxaparin/Lovenox 30 mg SQ daily (WT < 150 kg, CrCl > 10-29 mL/min) *Enoxaparin/Lovenox 30 mg SQ BID (WT < 150 kg, CrCl > 30 mL/min) AND *Sequential Compression Device (SCD) Assessment and Plan - Assessment (1) Chest pain Code(s): R07.9 - Chest pain, unspecified Status: Acute (2) Hepatosplenomegaly Code(s): R16.2 - Hepatomegaly with splenomegaly, not elsewhere classified Status: Acute (3) Elevated lipase Code(s): R74.8 - Abnormal levels of other serum enzymes Status: Acute - Plan * Chest pain: Patient has has had serial cardiac enzymes and EKGs for ruling out purposes. He was seen by tool storage attendant Dr. Fabio Hoffman in chest pain center. His symptoms are very atypical. We will put in a Lexiscan but [facility] issues. We will follow the Lexiscan. * Hepatosplenomegaly: [facility] I placed a GI consult. * Elevated lipase: GI consult has been placed. He is on IV fluids. Patient stable at this time. He is agreeable to this plan. H&P: Quality - VTE Deep Vein Thrombosis/Pulmonary Embolism Present on Admission: No
--- NOTE | 2018-05-07 11:17 | P.CONGI ---
History of Present Illness Consult date: 05/07/18 Consult reason: Splenomegaly with varices, likely portal hypertension Elevated lipase Chief complaint: chest pain r/o ACS History of Present Illness: This patient is a 53-year-old male patient who presented to the emergency room today at [facility] with a complaint of left-sided chest wall pain. Patient reports that the pain started last evening after he was discharged from the pending sale to [facility]. He describes the pain as an ache in the left upper side of his chest and reports having associated nausea without vomiting. Patient denies any fever or chills. During evaluation patient was noted to have elevated lipase level, CT abdomen and pelvis revealed cirrhotic changes to the liver, hepatic steatosis, splenomegaly with varices likely portal hypertension. Our service has been consulted to evaluate same. Patient reports that he has had intermittent nausea without vomiting for 1-2 months. He does state that he normally drinks a pint of vodka daily and has done so for the last 10-15 years. States he normally drinks straight 2-3 days in a row and then will take a few weeks off before repeating the same. Patient denies tobacco use, denies IV drug use, denies high risk sexual behavior or tattoos. Patient denies any dark discoloration to urine or stools. Denies any noted bleeding, difficulty swallowing, painful swallowing or heartburn. Patient reports EGD/colonoscopy last done 25-30 years ago as a young adult due to frequent nausea and heartburn. Patient states there were no significant findings to his recollection. Patient denies taking any prescription medications, denies NSAID use and states Tylenol infrequent for occasional headache. Patient states only known family history his maternal grandmother who from pancreatic cancer. (05/07) CT abdomen and pelvis revealed the followin. Enlarged cirrhotic appearing liver with suspected hepatic steatosis. 2. Splenomegaly with varices. The splenomegaly is likely from portal hypertension. 3. Nonobstructing renal stone seen bilaterally. 4. Left renal cysts Patient denies abdominal pain, diarrhea, constipation or any neurological symptoms. Denies abdominal distention or weight gain, edema of lower extremities. <Shilpa Douglass - Last Filed: 05/07/18 11:20> Review of Systems All other systems reviewed negative except as stated in HPI <Shilpa Douglass - Last Filed: 05/07/18 11:20> PMFSH - History History Provided By: Patient - Medical History Medical History: Medical History (Last Reviewed 05/07/18 @ 01:31 by Mel Ryan MD) Hypertension - Tobacco History Second Hand Smoke Exposure: No Smoking Status: Never smoker - Alcohol History How Often Do You Have a Drink Containing Alcohol: 2 to 4 times a month - Substance Use History Substance History: No History of Abuse - Travel History Recent Travel in the [place] Within the Last 8 Weeks: No Recent Travel Out of the Country Within the Last 8 Weeks: No - Immunization History Tetanus Immunization: <5 Years Tetanus Immunization Year if Known: 2015 <Shilpa Douglass - Last Filed: 05/07/18 11:20> - Medical History Medical History: Medical History (Last Reviewed 05/07/18 @ 01:31 by Mel Ryan MD) Hypertension <Joseph Mccullough - Last Filed: 05/07/18 23:12> Medications and Allergies Active Medications: Active Medications Acetaminophen (Tylenol) 500 mg PO Q4H PRN PRN Reason: HEADACHE Sodium Chloride (Ns Inj) 1,000 mls @ 100 mls/hr IV.CONT .Q10H [facility] Last Admin: 05/07/18 05:45 Dose: 100 mls/hr Morphine Sulfate (Morphine Inj) 2 mg IV.PUSH Q4H PRN PRN Reason: PAIN SCALE 8 TO 10 Ondansetron HCl (Zofran Inj) 4 mg IV.PUSH Q6H PRN PRN Reason: NAUSEA Pantoprazole Sodium (Protonix) 40 mg PO DAILY [facility] Sodium Chloride (Ns Flush) 2 ml IV.FLUSH BID [facility] Last Admin: 05/07/18 08:34 Dose: Not Given Sodium Chloride (Ns Flush) 2 ml IV.FLUSH PRN PRN PRN Reason: FLUSH AFTER USING IV ACCESS <Shilpa Douglass - Last Filed: 05/07/18 11:20> Active Medications: Active Medications Acetaminophen (Tylenol) 500 mg PO Q4H PRN PRN Reason: HEADACHE Sodium Chloride (Ns Inj) 1,000 mls @ 100 mls/hr IV.CONT .Q10H [facility] Last Admin: 05/07/18 19:15 Dose: 100 mls/hr Morphine Sulfate (Morphine Inj) 2 mg IV.PUSH Q4H PRN PRN Reason: PAIN SCALE 8 TO 10 Nadolol (Corgard) 20 mg PO DAILY [facility] Last Admin: 05/07/18 14:54 Dose: 20 mg Ondansetron HCl (Zofran Inj) 4 mg IV.PUSH Q6H PRN PRN Reason: NAUSEA Pantoprazole Sodium (Protonix) 40 mg PO DAILY [facility] Last Admin: 05/07/18 11:37 Dose: Not Given Sodium Chloride (Ns Flush) 2 ml IV.FLUSH BID [facility] Last Admin: 05/07/18 21:08 Dose: Not Given Sodium Chloride (Ns Flush) 2 ml IV.FLUSH PRN PRN PRN Reason: FLUSH AFTER USING IV ACCESS <Joseph Mccullough E - Last Filed: 05/07/18 23:12> Allergies Allergy/AdvReac Type Severity Reaction Status Date / Time No Known Allergies Allergy Verified 05/07/18 01:08 Home Medications Medication Instructions Recorded Confirmed Type No Known Home Medications 05/07/18 05/07/18 History Exam Vital signs: Vital Signs 05/07/18 01:04 05/07/18 01:08 05/07/18 02:00 Temperature 98.8 F Pulse Rate 88 70 Respiratory Rate 17 16 Blood Pressure 179/101 H 149/94 H Pulse Oximetry 97 98 05/07/18 03:30 05/07/18 04:00 05/07/18 07:44 Temperature 98.3 F Pulse Rate 82 75 71 Respiratory Rate 16 16 16 Blood Pressure 152/78 H 156/85 H 135/71 Pulse Oximetry 97 97 93 L 05/07/18 08:00 Temperature Pulse Rate 78 Respiratory Rate Blood Pressure Pulse Oximetry Intake & Output 05/06/18 05/07/18 05/07/18 18:59 06:59 18:59 Intake Total 500 / 500 Output Total 0 / 0 Balance 500 / 500 Weight 103.419 kg Intake: IV 500 / 500 NS Inj 500 ML @ Wide Open IV. 500 / 500 SIG ONCE ONE Rx#:[id number] Output: Urine 0 / 0 Other: Date of Last Bowel Movement 05/06/18 - Constitutional no acute distress - Routine HEENT Exam Head: Present: normocephalic - Routine Neck Exam Present: supple - Routine Chest/Breast/Axilla Exam Chest wall: Absent: tenderness - Routine Respiratory Exam Present: CTA bilaterally. Absent: accessory muscle use - Routine Cardiovascular Exam Present: RRR, S1, S2 - Routine Abdominal Exam Present: soft, normoactive bowel sounds. Absent: tenderness, distended, guarding, firm - Routine Extremities Exam Present: full ROM, pulses intact. Absent: edema - Routine Skin Exam Present: dry, warm. Absent: jaundice <DouglassShilpa - Last Filed: 05/07/18 11:20> Vital signs: Vital Signs 05/07/18 01:04 05/07/18 01:08 05/07/18 02:00 Temperature 98.8 F Pulse Rate 88 70 Respiratory Rate 17 16 Blood Pressure 179/101 H 149/94 H Pulse Oximetry 97 98 05/07/18 03:30 05/07/18 04:00 05/07/18 07:44 Temperature 98.3 F Pulse Rate 82 75 71 Respiratory Rate 16 16 16 Blood Pressure 152/78 H 156/85 H 135/71 Pulse Oximetry 97 97 93 L 05/07/18 08:00 05/07/18 12:05 05/07/18 15:03 Temperature 98.1 F Pulse Rate 78 72 Respiratory Rate 16 Blood Pressure 149/82 H Pulse Oximetry 95 95 05/07/18 16:06 05/07/18 20:00 Temperature 98.3 F 97.0 F L Pulse Rate 58 L 67 Respiratory Rate 16 18 Blood Pressure 147/101 H 168/96 H Pulse Oximetry 96 97 Intake & Output 05/07/18 05/07/18 05/08/18 06:59 18:59 06:59 Intake Total 500 / 500 1000 / 1000 Output Total 0 / 0 Balance 500 / 500 1000 / 1000 Weight 103.419 kg Intake: IV 500 / 500 1000 / 1000 NS Inj 1,000 ML @ 100 mls/hr IV 1000 / 1000 .CONT .Q10H [facility] Rx#:[id number] NS Inj 500 ML @ Wide Open IV. 500 / 500 SIG ONCE ONE Rx#:[id number] Output: Urine 0 / 0 Other: Date of Last Bowel Movement 05/06/18 <Joseph Mccullough - Last Filed: 05/07/18 23:12> Results - Labs CBC & Chem 7: 05/07/18 01:30 05/07/18 01:30 Labs: Laboratory Results - last 24 hr 05/07/18 05/07/18 05/07/18 01:30 01:30 01:30 WBC 5.6 RBC 4.72 Hgb 14.7 Hct 42.1 MCV 89.2 MCH 31.1 MCHC 34.9 RDW 14.8 Plt Count 74 L MPV 10.1 Prelim Diff (Auto) Slide review pending Neut % (Auto) 71.5 H Lymph % (Auto) 19.6 Cannon % (Auto) 6.3 Eos % (Auto) 2.1 Baso % (Auto) 0.5 Neut # (Auto) 4.0 Lymph # (Auto) 1.1 Cannon # (Auto) 0.4 Eos # (Auto) 0.1 Baso # (Auto) 0.0 WBC Differential . Diff Scan Auto diff confirmed Differential Comment . Platelet Estimate Low L Platelet Morphology Normal PT 12.0 H INR 1.2 APTT 25.5 Sodium 141 Potassium 3.9 Chloride 108 H Carbon Dioxide 27.9 Anion Gap 5 BUN 14 Creatinine 0.80 Estimated GFR Greater than 89 Random Glucose 90 Calcium 8.2 L Magnesium 2.0 Total Bilirubin 0.6 AST 79 H ALT 99 H Alkaline Phosphatase 88 Total Creatine Kinase 154 CK-MB (CK-2) 1.9 Troponin I Less than 0.02 L Total Protein 7.5 Albumin 3.6 Lipase 623 H 05/07/18 05/07/18 04:40 07:30 WBC RBC Hgb Hct MCV MCH MCHC RDW Plt Count MPV Prelim Diff (Auto) Neut % (Auto) Lymph % (Auto) Cannon % (Auto) Eos % (Auto) Baso % (Auto) Neut # (Auto) Lymph # (Auto) Cannon # (Auto) Eos # (Auto) Baso # (Auto) WBC Differential Diff Scan Differential Comment Platelet Estimate Platelet Morphology PT INR APTT Sodium Potassium Chloride Carbon Dioxide Anion Gap BUN Creatinine Estimated GFR Random Glucose Calcium Magnesium Total Bilirubin AST ALT Alkaline Phosphatase Total Creatine Kinase 126 119 CK-MB (CK-2) Troponin I Less than 0.02 L Less than 0.02 L Total Protein Albumin Lipase - Imaging Impressions Chest X-Ray 05/07/18 01:24 CONCLUSION: No acute abnormality is seen. Head CT 05/07/18 01:24 CONCLUSION: No intracranial abnormality is seen. . Abdomen/Pelvis CT 05/07/18 02:29 CONCLUSION: 1. Enlarged cirrhotic appearing liver with suspected hepatic steatosis. 2. Splenomegaly with varices. The splenomegaly is likely from portal hypertension. 3. Nonobstructing renal stone seen bilaterally. 4. Left renal cysts <DouglassShilpa - Last Filed: 05/07/18 11:20> - Labs CBC & Chem 7: 05/07/18 01:30 05/07/18 01:30 Labs: Laboratory Results - last 24 hr 05/07/18 05/07/18 05/07/18 01:30 01:30 01:30 WBC 5.6 RBC 4.72 Hgb 14.7 Hct 42.1 MCV 89.2 MCH 31.1 MCHC 34.9 RDW 14.8 Plt Count 74 L MPV 10.1 Prelim Diff (Auto) Slide review pending Neut % (Auto) 71.5 H Lymph % (Auto) 19.6 Cannon % (Auto) 6.3 Eos % (Auto) 2.1 Baso % (Auto) 0.5 Neut # (Auto) 4.0 Lymph # (Auto) 1.1 Cannon # (Auto) 0.4 Eos # (Auto) 0.1 Baso # (Auto) 0.0 WBC Differential . Diff Scan Auto diff confirmed Differential Comment . Platelet Estimate Low L Platelet Morphology Normal PT 12.0 H INR 1.2 APTT 25.5 Sodium 141 Potassium 3.9 Chloride 108 H Carbon Dioxide 27.9 Anion Gap 5 BUN 14 Creatinine 0.80 Estimated GFR Greater than 89 Random Glucose 90 Calcium 8.2 L Magnesium 2.0 Iron TIBC % Saturation Ferritin Total Bilirubin 0.6 AST 79 H ALT 99 H Alkaline Phosphatase 88 Ammonia Total Creatine Kinase 154 CK-MB (CK-2) 1.9 Troponin I Less than 0.02 L Total Protein 7.5 Albumin 3.6 Lipase 623 H Tumor Marker AFP CA 19-9 Antigen Hepatitis A IgM Ab Hep Bs Antigen Hep B Core IgM Ab Hep C IgG Ab 05/07/18 05/07/18 05/07/18 04:40 07:30 12:35 WBC RBC Hgb Hct MCV MCH MCHC RDW Plt Count MPV Prelim Diff (Auto) Neut % (Auto) Lymph % (Auto) Cannon % (Auto) Eos % (Auto) Baso % (Auto) Neut # (Auto) Lymph # (Auto) Cannon # (Auto) Eos # (Auto) Baso # (Auto) WBC Differential Diff Scan Differential Comment Platelet Estimate Platelet Morphology PT INR APTT Sodium Potassium Chloride Carbon Dioxide Anion Gap BUN Creatinine Estimated GFR Random Glucose Calcium Magnesium Iron 123 TIBC 382 % Saturation 32.2 Ferritin 132 Total Bilirubin AST ALT Alkaline Phosphatase Ammonia Total Creatine Kinase 126 119 CK-MB (CK-2) Troponin I Less than 0.02 L Less than 0.02 L Total Protein Albumin Lipase Tumor Marker AFP 2.9 CA 19-9 Antigen Hepatitis A IgM Ab Hep Bs Antigen Hep B Core IgM Ab Hep C IgG Ab 05/07/18 05/07/18 12:35 12:35 WBC RBC Hgb Hct MCV MCH MCHC RDW Plt Count MPV Prelim Diff (Auto) Neut % (Auto) Lymph % (Auto) Cannon % (Auto) Eos % (Auto) Baso % (Auto) Neut # (Auto) Lymph # (Auto) Cannon # (Auto) Eos # (Auto) Baso # (Auto) WBC Differential Diff Scan Differential Comment Platelet Estimate Platelet Morphology PT INR APTT Sodium Potassium Chloride Carbon Dioxide Anion Gap BUN Creatinine Estimated GFR Random Glucose Calcium Magnesium Iron TIBC % Saturation Ferritin Total Bilirubin AST ALT Alkaline Phosphatase Ammonia 35 H Total Creatine Kinase CK-MB (CK-2) Troponin I Total Protein Albumin Lipase Tumor Marker AFP CA 19-9 Antigen 14.3 Hepatitis A IgM Ab Nonreactive Hep Bs Antigen Nonreactive Hep B Core IgM Ab Nonreactive Hep C IgG Ab Reactive H - Imaging Impressions Chest X-Ray 05/07/18 01:24 CONCLUSION: No acute abnormality is seen. Head CT 05/07/18 01:24 CONCLUSION: No intracranial abnormality is seen. . Abdomen/Pelvis CT 05/07/18 02:29 CONCLUSION: 1. Enlarged cirrhotic appearing liver with suspected hepatic steatosis. 2. Splenomegaly with varices. The splenomegaly is likely from portal hypertension. 3. Nonobstructing renal stone seen bilaterally. 4. Left renal cysts <Joseph Mccullough - Last Filed: 05/07/18 23:12> Assessment and Plan (1) Elevated lipase Status: Acute Code(s): R74.8 - Abnormal levels of other serum enzymes (2) Hepatosplenomegaly Status: Acute Code(s): R16.2 - Hepatomegaly with splenomegaly, not elsewhere classified - Plan This patient is a 53-year-old male patient who presented to the emergency room today at [facility] with a complaint of left-sided chest wall pain. Patient reports that the pain started last evening after he was discharged from the pending sale to [facility]. He describes the pain as an ache in the left upper side of his chest and reports having associated nausea without vomiting. Patient denies any fever or chills. During evaluation patient was noted to have elevated lipase level, CT abdomen and pelvis revealed cirrhotic changes to the liver, hepatic steatosis, splenomegaly with varices likely portal hypertension. Our service has been consulted to evaluate same. Patient reports that he has had intermittent nausea without vomiting for 1-2 months. He does state that he normally drinks a pint of vodka daily and has done so for the last 10-15 years. States he normally drinks straight 2-3 days in a row and then will take a few weeks off before repeating the same. Patient denies tobacco use, denies IV drug use, denies high risk sexual behavior or tattoos. Patient denies any dark discoloration to urine or stools. Denies any noted bleeding, difficulty swallowing, painful swallowing or heartburn. Patient reports EGD/colonoscopy last done 25-30 years ago as a young adult due to frequent nausea and heartburn. Patient states there were no significant findings to his recollection. Patient denies taking any prescription medications, denies NSAID use and states Tylenol infrequent for occasional headache. Patient states only known family history his maternal grandmother who from pancreatic cancer. (05/07) CT abdomen and pelvis revealed the followin. Enlarged cirrhotic appearing liver with suspected hepatic steatosis. 2. Splenomegaly with varices. The splenomegaly is likely from portal hypertension. 3. Nonobstructing renal stone seen bilaterally. 4. Left renal cysts Patient denies abdominal pain, diarrhea, constipation or any neurological symptoms. Denies abdominal distention or weight gain, edema of lower extremities Splenomegaly with varices likely portal hypertension CT abdomen and pelvis results as noted above. Hemoglobin of 14.7 hematocrit 42.1 platelet count 74 INR 1.2 total bilirubin 0.6 AST 79 ALT 99 alk phos 88 CTP score 5 points--> class A Elevated lipase Lipase 623, patient denies any abdominal pain nausea or vomiting. Probable pancreatitis. Plan -N.p.o. for now -Serum immunology -Hepatitis panel -Monitor liver function tests -Ammonia level -Nadolol for portal hypertension -PPI -Antiemetics and analgesics as per attending -IV hydration -Supportive care -Further recommendations to follow based on patient's status and findings This patient has been seen by myself and Dr. Mccullough and this note is written on his behalf - Attending Attestation Dr. Mccullough <Shilpa Douglass - Last Filed: 05/07/18 11:20> (1) Elevated lipase Status: Acute Code(s): R74.8 - Abnormal levels of other serum enzymes (2) Hepatosplenomegaly Status: Acute Code(s): R16.2 - Hepatomegaly with splenomegaly, not elsewhere classified - Plan Patient seen and examined Agree with above history and physical Continue with current supportive care Monitor labs Patient presenting with chest wall pain incarceration imaging studies reveal cirrhosis and probable underlying fatty liver lab work reveals elevated liver function tests and lipase of unclear significance also noted abnormal findings on CT the cirrhosis and the hepatosplenomegaly We will proceed with an upper endoscopy to further evaluate for varices and causes of nausea and possible vomiting Liver workup in progress Further recommendations she will depend on hospital course <Joseph Mccullough - Last Filed: 05/07/18 23:12>
[2018-05-07 13:24] LABS: % Iron Saturation 32.2 % (20-50)
[2018-05-07 13:27] LABS: Alpha Fetoprotein Tumor Marker 2.9 ng/mL (0.5-8.0)
--- NOTE | 2018-05-07 14:01 | ECG ---
Date Performed: 05/07/2018 Time Performed: 07:41:21 PTAGE: 53 years EKG: Sinus rhythm NORMAL ECG NO PREVIOUS TRACING DOCTOR: Fabio Hoffman Interpretating Date/Time 05/07/2018 13:59:13
--- NOTE | 2018-05-07 14:06 | ECG ---
Date Performed: 05/07/2018 Time Performed: 01:13:14 PTAGE: 53 years EKG: Sinus rhythm NORMAL ECG PREVIOUS TRACING : 05/06/2012 17.40 Since previous tracing, no significant change noted DOCTOR: Fabio Hoffman Interpretating Date/Time 05/07/2018 14:03:14
--- NOTE | 2018-05-07 14:06 | ECG ---
Date Performed: 05/07/2018 Time Performed: 04:44:28 PTAGE: 53 years EKG: Sinus rhythm WITH SINUS ARRHYTHMIA NORMAL ECG PREVIOUS TRACING : 05/07/2018 01.13 Since previous tracing, no significant change noted DOCTOR: Fabio Hoffman Interpretating Date/Time 05/07/2018 14:04:14
[2018-05-07 14:11] LABS: Cancer Antigen 19-9 14.3 U/mL (0.0-35.0)
[2018-05-07 14:25] LABS: Hepatitis A IgM Antibody Nonreactive (Nonreactive); Hepatitits B Surface Antigen Nonreactive (Nonreactive)
[2018-05-07] MEDS: Nadolol 20 MG Tablet PO SCH (14:54)
[2018-05-08] MEDS: Sod Chloride 0.9% Inj 1,000 ML IV.CONT SCH ×2 (05:21→12:20)
[2018-05-08 07:32] LABS: Baso % (Auto) 0.5 % (0.0-2.0); Eos # (Auto) 0.1 th/mm3 (0.0-0.4); Eos % (Auto) 3.4 % (0.0-4.0); Hematocrit 42.2 % (39.0-51.0); Hemoglobin 14.8 gm/dL (13.0-17.0); Lymph # (Auto) 1.1 th/mm3 (1.0-4.8); Lymph % (Auto) 25.4 % (9.0-44.0); Mean Corpuscular Hemoglobin 30.9 pg (27.0-34.0); Mean Corpuscular Volume 88.4 fL (80.0-100.0); Mean Platelet Volume 10.3 fL (7.0-11.0); Mono # (Auto) 0.3 th/mm3 (0.0-0.9); Mono % (Auto) 7.7 % (0.0-8.0); Neut # (Auto) 2.7 th/mm3 (1.8-7.7); Platelet Count 62 th/mm3 (150-450); Red Blood Count 4.78 mil/mm3 (4.50-5.90); Red Cell Distribution Width 14.5 % (11.6-17.2); White Blood Count 4.3 th/mm3 (4.0-11.0)
[2018-05-08 07:58] LABS: Alanine Aminotransferase 79 U/L (12-78); Albumin 3.1 g/dL (3.4-5.0); Anion Gap 4 meq/L (5-15); Aspartate Aminotransferase 55 U/L (15-37); Blood Urea Nitrogen 13 mg/dL (7-18); Calcium 8.1 mg/dL (8.5-10.1); Carbon Dioxide 31.1 meq/L (21.0-32.0); Chloride 105 meq/L (98-107); Glomerular Filtration Rate Greater Than 89 mL/min (>89); Glucose,Random 88 mg/dL (74-106); Lipase 465 U/L (73-393); Potassium 3.9 meq/L (3.5-5.1); Sodium 140 meq/L (136-145)
[2018-05-08 08:00] LABS: Alkaline Phosphatase 89 U/L (45-117)
--- NOTE | 2018-05-08 08:59 | P.PN ---
Subjective Interval history: Follow-up on patient with chest pain, elevated lipase, cirrhosis, daily alcohol use. Patient seen and examined. Patient denies any complaints of chest pain or abdominal pain. States he was able to eat last night without any nausea vomiting or abdominal pain. Reports a history of high blood pressure but is not been on any medication. He is previously on lisinopril and clonidine. He denies any visual or auditory hallucinations. He denies any anxiety. He denies any complaints of urinary difficulties or diarrhea. He is n.p.o. for EGD procedure. Physical Exam Vital signs: Vital Signs 05/07/18 12:05 05/07/18 15:03 05/07/18 16:06 Temperature 98.1 F 98.3 F Pulse Rate 72 58 L Respiratory Rate 16 16 Blood Pressure 149/82 H 147/101 H Pulse Oximetry 95 95 96 05/07/18 20:00 05/07/18 23:27 05/08/18 03:46 Temperature 97.0 F L 98.7 F 98.3 F Pulse Rate 67 60 65 Respiratory Rate 18 20 19 Blood Pressure 168/96 H 189/107 H 175/102 H Pulse Oximetry 97 96 95 05/08/18 07:15 05/08/18 08:35 Temperature 98.4 F Pulse Rate 69 65 Respiratory Rate 18 Blood Pressure 190/113 H Pulse Oximetry 97 Intake & Output 05/07/18 05/08/18 05/08/18 18:59 06:59 18:59 Intake Total 1999 Output Total 750 / 750 Balance 1250 / 1250 Intake: IV 1999 NS Inj 1,000 ML @ 100 mls/hr IV 1999 .CONT .Q10H [facility] Rx#:[id number] Output: Urine 750 / 750 Other: Date of Last Bowel Movement 05/07/18 Narrative: GENERAL: WDWN male patient, INAD. Awake and alert. SKIN: Warm and dry. No rash. HEENT: Atraumatic. Normocephalic. Pupils equal and round. No scleral icterus. No injection or drainage. No nasal bleeding or discharge. Mucous membranes pink and moist. NECK: Trachea midline. CARDIOVASCULAR: Regular rate and rhythm. RESPIRATORY: No accessory muscle use. Clear to auscultation. Breath sounds equal bilaterally. GASTROINTESTINAL: Abdomen soft, non-tender, nondistended. +BS. MUSCULOSKELETAL: Extremities without clubbing, cyanosis, or edema. No obvious deformities. NEUROLOGICAL: Awake and alert. No obvious cranial nerve deficits. Motor grossly within normal limits. Able to move all extremities spontaneously. Normal speech. PSYCHIATRIC: Appropriate mood and affect; Calm and cooperative. Results - Labs CBC & Chem 7: 05/08/18 06:35 05/08/18 06:35 Laboratory Results - last 24 hr 05/07/18 05/07/18 05/07/18 12:35 12:35 12:35 WBC RBC Hgb Hct MCV MCH MCHC RDW Plt Count MPV Prelim Diff (Auto) Neut % (Auto) Lymph % (Auto) Schley % (Auto) Eos % (Auto) Baso % (Auto) Neut # (Auto) Lymph # (Auto) Schley # (Auto) Eos # (Auto) Baso # (Auto) Differential Comment Sodium Potassium Chloride Carbon Dioxide Anion Gap BUN Creatinine Estimated GFR Random Glucose Calcium Iron 123 TIBC 382 % Saturation 32.2 Ferritin 132 Total Bilirubin AST ALT Alkaline Phosphatase Ammonia 35 H Total Protein Albumin Lipase Tumor Marker AFP 2.9 CA 19-9 Antigen 14.3 Hepatitis A IgM Ab Nonreactive Hep Bs Antigen Nonreactive Hep B Core IgM Ab Nonreactive Hep C IgG Ab Reactive H 05/08/18 05/08/18 06:35 06:35 WBC 4.3 RBC 4.78 Hgb 14.8 Hct 42.2 MCV 88.4 MCH 30.9 MCHC 35.0 RDW 14.5 Plt Count 62 L MPV 10.3 Prelim Diff (Auto) Slide review pending Neut % (Auto) 63.0 Lymph % (Auto) 25.4 Schley % (Auto) 7.7 Eos % (Auto) 3.4 Baso % (Auto) 0.5 Neut # (Auto) 2.7 Lymph # (Auto) 1.1 Schley # (Auto) 0.3 Eos # (Auto) 0.1 Baso # (Auto) 0.0 Differential Comment . Sodium 140 Potassium 3.9 Chloride 105 Carbon Dioxide 31.1 Anion Gap 4 L BUN 13 Creatinine 0.78 Estimated GFR Greater than 89 Random Glucose 88 Calcium 8.1 L Iron TIBC % Saturation Ferritin Total Bilirubin 1.1 H AST 55 H ALT 79 H Alkaline Phosphatase 89 Ammonia Total Protein 7.0 Albumin 3.1 L Lipase 465 H Tumor Marker AFP CA 19-9 Antigen Hepatitis A IgM Ab Hep Bs Antigen Hep B Core IgM Ab Hep C IgG Ab Assessment and Plan - Plan 53-year-old male that presents to ED with complaint of developing chest pain. CT abd/pelvis significant for enlarged cirrhotic appearing liver, splenomegaly with varices likely from portal hypertension. Patient also had elevated lipase level. Chest pain, atypical, likely GI etiology Initially admitted to chest pain center, ruled out ACS -Patient has no cardiac complaints at this time. Continue to monitor. Acute pancreatitis with lipase level of 623 Splenomegaly with varices likely portal hypertension Liver cirrhosis CT abd/pelvis showed enlarged cirrhotic appearing liver, splenomegaly with varices likely from portal hypertension, nonobstructing renal stones bilaterally and left renal cyst. Ammonia level 35 -GI following, appreciate assistance. Plan for EGD this morning. Keep NPO -started on Nadolol for varices, continue -PPI -trend lipase level, lipase improved to 465 -IVF -IV Morphine prn pain Hepatitis C -Discussed at length importance of alcohol cessation -Discussed new diagnosis of hepatitis C including effects of continued alcohol use, non-treatment, transmission and progression of disesase to include liver cancer -Patient will need to follow-up with GI as outpatient Alcohol abuse -[facility] protocol -thiamine, folic acid, MVI daily -monitor for EtOH withdrawal Hypertension, chronic, untreated Patient states he is previously on lisinopril 10 mg and clonidine 0.3 but has not taken medication in quite some time -Lisinopril 10mg daily -Clonidine prn with parameters -Continue to monitor BP and adjust treatment accordingly DVT prophylaxis -bilateral SCD/DON hose Discussed Condition With: patient, nursing staff, Dr. Lezama Discharge Planning: Not ready for discharge. Discharge pending EGD results, GI clearance and improvement in blood pressure
[2018-05-08 09:27] LABS: Platelet Morphology Normal (Normal)
[2018-05-08] MEDS: Nadolol 20 MG Tablet PO SCH (09:27)
[2018-05-08] MEDS: Lisinopril 10 MG Tablet PO SCH (12:20)
[2018-05-08 13:52] LABS: Smooth Muscle Total Auto Abs Negative (Negative)
[2018-05-08] MEDS ORDERED: Metoprolol Tartrate 25 MG Tablet PO PRN (16:36)
[2018-05-08] MEDS ORDERED: Chlorhexidine Gluconate 2% 1 Pack (2 Cloths) TOPICAL ONE (16:36)
--- NOTE | 2018-05-08 16:43 | P.PCN ---
Date of procedure: 05/08/18 Pre-op diagnosis: Cirrhosis, nausea Procedure: PROCEDURE PERFORMED EGD PROCEDURE: The procedure, risks and benefits were discussed with Patient/POA and informed consent was obtained. Anesthesia sedated Patient with Diprivan. Patient was placed in the left lateral decubitus position. EGD: The Pentax videoscope was introduced through the oropharynx and advanced to the second portion of the duodenum under direct visualization. Retroflexion was performed in the stomach. FINDINGS: The esophagus this appeared to be normal no esophageal varices The stomach the gastric mucosa appeared to be diffusely edematous with a cobblestone appearance consistent with portal hypertensive gastropathy although mild at this point biopsies were taken for further evaluation there were no gastric varices The duodenum this was normal ESTIMATED BLOOD LOSS: None SPECIMENS REMOVED: Gastric biopsies COMPLICATIONS: None IMPRESSION: Portal hypertensive gastropathy mild PLAN: Await biopsies EGD in 1 year Low-salt diet Continue with current supportive care Avoid alcohol and liver toxins Anesthesia: MAC Surgeon: Joseph Mccullough Condition: stable Disposition: floor
[2018-05-08] MEDS ORDERED: Sodium Chlor 0.9% Inj 500 ML IV.SIG SCH (17:00)
[2018-05-08 19:52] LABS: Hepatitis Be Antigen NONREACTIVE
[2018-05-08 23:51] LABS: DS DNA Ab (Crithidia) NEGATIVE (NEGATIVE)
[2018-05-09] MEDS: Sod Chloride 0.9% Inj 1,000 ML IV.CONT SCH ×2 (06:25→08:35)
--- NOTE | 2018-05-09 07:22 | P.PN ---
Subjective Interval history: Follow-up on patient with chest pain, elevated lipase, cirrhosis, daily alcohol use. Patient seen and examined. Patient tolerating diet without any difficulties. Denies any nausea, vomiting or abdominal pain. He denies any chest pain. Patient states he feels well. Discussed with nursing staff, no acute issues noted overnight. Physical Exam Vital signs: Vital Signs 05/08/18 08:00 05/08/18 08:35 05/08/18 12:00 Temperature 98.8 F Pulse Rate 70 65 62 Respiratory Rate 16 Blood Pressure 198/105 H Pulse Oximetry 95 05/08/18 16:51 05/08/18 20:00 05/08/18 23:46 Temperature 97.2 F L 98.5 F 98.7 F Pulse Rate 72 62 61 Respiratory Rate 18 18 18 Blood Pressure 171/96 H 154/97 H 149/91 H Pulse Oximetry 98 96 96 05/09/18 04:00 Temperature 98.2 F Pulse Rate 62 Respiratory Rate 19 Blood Pressure 154/85 H Pulse Oximetry 95 Intake & Output 05/08/18 05/09/18 05/09/18 18:59 06:59 18:59 Intake Total 200 / 200 Output Total 825 / 825 Balance -625 / -625 Intake: Anesthesia Amount 200 / 200 Output: Urine 825 / 825 Other: # Voids 2 Date of Last Bowel Movement 05/08/18 Narrative: GENERAL: WDWN male patient, INAD. Awake and alert. Appears comfortable. SKIN: Warm and dry. No rash. HEENT: Atraumatic. Normocephalic. Pupils equal and round. No scleral icterus. No injection or drainage. No nasal bleeding or discharge. Mucous membranes pink and moist. NECK: Trachea midline. CARDIOVASCULAR: Regular rate and rhythm. RESPIRATORY: No accessory muscle use. Clear to auscultation. Breath sounds equal bilaterally. GASTROINTESTINAL: Abdomen soft, non-tender, nondistended. +BS. MUSCULOSKELETAL: Extremities without clubbing, cyanosis, or edema. No obvious deformities. NEUROLOGICAL: Awake and alert. No obvious cranial nerve deficits. Motor grossly within normal limits. Able to move all extremities spontaneously. Normal speech. PSYCHIATRIC: Appropriate mood and affect; Calm and cooperative. Results - Labs CBC & Chem 7: 05/09/18 06:20 05/08/18 06:35 Laboratory Results - last 24 hr 10/05/08/18 05/08/18 12:35 06:35 06:35 WBC 4.3 RBC 4.78 Hgb 14.8 Hct 42.2 MCV 88.4 MCH 30.9 MCHC 35.0 RDW 14.5 Plt Count 62 L MPV 10.3 Prelim Diff (Auto) Slide review pending Neut % (Auto) 63.0 Lymph % (Auto) 25.4 [place] % (Auto) 7.7 Eos % (Auto) 3.4 Baso % (Auto) 0.5 Neut # (Auto) 2.7 Lymph # (Auto) 1.1 [place] # (Auto) 0.3 Eos # (Auto) 0.1 Baso # (Auto) 0.0 WBC Differential . Diff Scan Auto diff confirmed Differential Comment . Platelet Estimate Low L Platelet Morphology Normal Sodium 140 Potassium 3.9 Chloride 105 Carbon Dioxide 31.1 Anion Gap 4 L BUN 13 Creatinine 0.78 Estimated GFR Greater than 89 Random Glucose 88 Calcium 8.1 L Total Bilirubin 1.1 H AST 55 H ALT 79 H Alkaline Phosphatase 89 Total Protein 7.0 Albumin 3.1 L Lipase 465 H Anti-ds DNA Titer (Crith) ND Anti-ds DNA (Crithidia) Negative Anti-Smooth Muscle Ab Negative Hepatitis Be Antigen Nonreactive Assessment and Plan - Plan 53-year-old male that presents to ED with complaint of developing chest pain. CT abd/pelvis significant for enlarged cirrhotic appearing liver, splenomegaly with varices likely from portal hypertension. Patient also had elevated lipase level. Chest pain, atypical, likely GI etiology Initially admitted to chest pain center, ruled out ACS -Patient has no cardiac complaints at this time. Continue to monitor. Acute pancreatitis with lipase level of 623 Splenomegaly with varices likely portal hypertension Liver cirrhosis CT abd/pelvis showed enlarged cirrhotic appearing liver, splenomegaly with varices likely from portal hypertension, nonobstructing renal stones bilaterally and left renal cyst. Ammonia level 35 -GI following, appreciate assistance. Status post EGD revealing portal hypertensive gastropathy, mild recommends EGD in 1 year and low-salt diet. Patient tolerating diet. Plan to discharge. -started on Nadolol for varices, continue -PPI -trend lipase level, lipase improved to 465 -IVF -IV Morphine prn pain Hepatitis C -Discussed at length importance of alcohol cessation -Discussed new diagnosis of hepatitis C including effects of continued alcohol use, non-treatment, transmission and progression of disesase to include liver cancer -Patient will need to follow-up with GI as outpatient Alcohol abuse -[facility] protocol -thiamine, folic acid, MVI daily -monitor for EtOH withdrawal Hypertension, chronic, untreated Patient states he is previously on lisinopril 10 mg and clonidine 0.3 but has not taken medication in quite some time -Lisinopril 10mg daily -Clonidine prn with parameters -Continue to monitor BP and adjust treatment accordingly 05/09 BP slightly improved but still elevated. Begin on Norvasc 5 mg daily. DVT prophylaxis -bilateral SCD/DON hose Discussed Condition With: patient, nursing staff, Dr. Lezama
[2018-05-09 08:06] LABS: Hematocrit 43.4 % (39.0-51.0); Hemoglobin 15.1 gm/dL (13.0-17.0); Mean Corpuscular HGB Conc 34.7 % (32.0-36.0); Mean Corpuscular Hemoglobin 30.5 pg (27.0-34.0); Mean Platelet Volume 11.2 fL (7.0-11.0); Platelet Count 70 th/mm3 (150-450); Red Blood Count 4.94 mil/mm3 (4.50-5.90); Red Cell Distribution Width 14.2 % (11.6-17.2); White Blood Count 4.6 th/mm3 (4.0-11.0)
[2018-05-09] MEDS ORDERED: amLODIPine 5 MG Tablet PO SCH (09:00)
[2018-05-09] MEDS ORDERED: Folic Acid 1 MG Tablet PO SCH (09:00)
[2018-05-09] MEDS: Nadolol 20 MG Tablet PO SCH (09:57)
[2018-05-09] MEDS: Lisinopril 10 MG Tablet PO SCH (09:58)
--- NOTE | 2018-05-09 17:03 | P.DS ---
Date of admission: 05/07/18 03:21 Primary care physician: No Primary Care Physician Attending physician on discharge: Pura Murciarukhsana Anticipated date of discharge: 05/09/18 Brief History from admission: This is a 53-year-old male that presents to ED with complaint of developing chest pain around midnight. States the discomfort was in left side of the chest and was a soreness. It has been there constantly, worsened with coughing and pressing on it. The discomfort is not as tense at this time. Also complaining of nausea, states is been close to emesis several times. Denies shortness of breath or diaphoresis. Denies abdominal pain. States he does get nauseous at times after eating. Denies diarrhea constipation. Denies blood in stool. Denies any prior history of any liver or spleen issues. Cannot recall ever having a GI workup. States is a non-smoker. Denies illicit drug use. States he rarely has alcohol. Cannot recall any immediate family history of heart disease. Denies hypertension, hyperlipidemia, diabetes, and known CAD. Patient update on day of discharge: Follow-up on patient with chest pain, elevated lipase, cirrhosis, daily alcohol use. Patient seen and examined. Patient tolerating diet without any difficulties. Denies any nausea, vomiting or abdominal pain. He denies any chest pain. Patient states he feels well. Discussed with nursing staff, no acute issues noted overnight. DS: Diagnosis - Discharge Diagnosis (1) Portal hypertension Status: Acute (2) Acute pancreatitis Status: Acute (3) Chest pain Status: Acute (4) Hepatitis C Status: Acute (5) Elevated lipase Status: Acute (6) Hepatosplenomegaly Status: Acute (7) Alcohol abuse Status: Acute (8) Liver cirrhosis Status: Acute (9) Hypertension Status: Acute DS: Medications - Discharge Medications Prescriptions: amlodipine [Norvasc] 5 mg PO DAILY #30 tab lisinopril 10 mg PO DAILY #30 tab multivitamin with folic acid [Thera] 1 tab PO DAILY #30 tab nadolol 20 mg PO DAILY #30 tab pantoprazole 40 mg PO DAILY #30 tab thiamine HCl (vitamin B1) 100 mg PO BID #30 tab DS: Summary Hospital Course: Patient was admitted to the chest pain center with complaints of left-sided chest pain and soreness with associated nausea. Patient ruled out ACS with negative serial cardiac enzymes and EKGs. CT the abdomen and pelvis was obtained which revealed enlarged cirrhotic appearing liver, splenomegaly with varices likely from portal hypertension and nonobstructing renal stone. Patient was also found to have elevated lipase level 623 likely indicating acute pancreatitis. Patient was transferred to Hepas service. GI consultation was requested. Patient underwent a EGD revealing portal hypertensive gastropathy. Hepatitis panel was reactive for hepatitis C. Patient was counseled on importance of complete alcohol cessation and follow-up with GI as an outpatient. Discussed with patient hepatitis C disease progression and transmission as well as association with liver cancer. Patient was able to tolerate a diet. He improved clinically. Patient was medically cleared to be discharged home. Patient discharged on a low-salt diet with instructions to follow-up with the [facility] as well as GI as an outpatient. Patient will need a EGD in 1 year. - Time Spent with Patient Total time spent providing and/or coordinating discharge services: Greater than 30 minutes - Quality: VTE Deep Vein Thrombosis/Pulmonary Embolism Present on Admission: No Exam Vital signs: Vital Signs 05/08/18 20:00 05/08/18 23:46 05/09/18 04:00 Temperature 98.5 F 98.7 F 98.2 F Pulse Rate 62 61 62 Respiratory Rate 18 18 19 Blood Pressure 154/97 H 149/91 H 154/85 H Pulse Oximetry 96 96 95 05/09/18 07:48 05/09/18 11:20 Temperature 98.5 F Pulse Rate 60 Respiratory Rate 20 Blood Pressure 155/95 H 148/98 H Pulse Oximetry 96 Intake & Output 05/08/18 05/09/18 05/09/18 18:59 06:59 18:59 Intake Total 200 / 200 Output Total 825 / 825 Balance -625 / -625 Intake: Anesthesia Amount 200 / 200 Output: Urine 825 / 825 Other: # Voids 2 Date of Last Bowel Movement 05/08/18 Narrative: GENERAL: WDWN male patient, INAD. Awake and alert. Appears comfortable. SKIN: Warm and dry. No rash. HEENT: Atraumatic. Normocephalic. Pupils equal and round. No scleral icterus. No injection or drainage. No nasal bleeding or discharge. Mucous membranes pink and moist. NECK: Trachea midline. CARDIOVASCULAR: Regular rate and rhythm. RESPIRATORY: No accessory muscle use. Clear to auscultation. Breath sounds equal bilaterally. GASTROINTESTINAL: Abdomen soft, non-tender, nondistended. +BS. MUSCULOSKELETAL: Extremities without clubbing, cyanosis, or edema. No obvious deformities. NEUROLOGICAL: Awake and alert. No obvious cranial nerve deficits. Motor grossly within normal limits. Able to move all extremities spontaneously. Normal speech. PSYCHIATRIC: Appropriate mood and affect; Calm and cooperative. Results Procedures completed during hospitalization: atient: Ramiro Kaiser#: [id number] : 1965 Acct: [id number] Age/Sex: 53 / M ADM Date: 05/07/18 Loc: [id number] Report Date: 05/08/[address]: Pura Lezama MD cc: Date of procedure: 05/08/18 Pre-op diagnosis: Cirrhosis, nausea Procedure: PROCEDURE PERFORMED EGD PROCEDURE: The procedure, risks and benefits were discussed with Patient/POA and informed consent was obtained. Anesthesia sedated Patient with Diprivan. Patient was placed in the left lateral decubitus position. EGD: The Pentax videoscope was introduced through the oropharynx and advanced to the second portion of the duodenum under direct visualization. Retroflexion was performed in the stomach. FINDINGS: The esophagus this appeared to be normal no esophageal varices The stomach the gastric mucosa appeared to be diffusely edematous with a cobblestone appearance consistent with portal hypertensive gastropathy although mild at this point biopsies were taken for further evaluation there were no gastric varices The duodenum this was normal ESTIMATED BLOOD LOSS: None SPECIMENS REMOVED: Gastric biopsies COMPLICATIONS: None IMPRESSION: Portal hypertensive gastropathy mild PLAN: Await biopsies EGD in 1 year Low-salt diet Continue with current supportive care Avoid alcohol and liver toxins Anesthesia: MAC Surgeon: Joseph Mccullough Condition: stable Disposition: floor Documented By: Joseph Mccullough MD 05/08/18 2172 Signed By: <Electronically signed by Joseph Mccullough MD> 05/08/18 9624 Pending studies at discharge: Pending at discharge 05/08/18 07:35 Surgical [PTH] Routine Labs on day of discharge: Labs from last 24 hours 05/09/18 05/07/18 06:20 12:35 WBC 4.6 RBC 4.94 Hgb 15.1 Hct 43.4 MCV 88.0 MCH 30.5 MCHC 34.7 RDW 14.2 Plt Count 70 L MPV 11.2 H Rheumatoid Factor Less than 14 ROBIN Screen Negative ROBIN Titer ND ROBIN Pattern ND SS-A Antibody <1.0 neg SS-B Antibody <1.0 neg Sm ([place]) Antibody <1.0 neg SM/AGRICULTURIST Antibody <1.0 neg Scl-70 Antibody <1.0 neg Anti-ds DNA Titer (Crith) ND Anti-ds DNA (Crithidia) Negative Hepatitis Be Antigen Nonreactive - Impressions ITS Impressions Chest X-Ray 05/07/18 01:24 CONCLUSION: No acute abnormality is seen. Head CT 05/07/18 01:24 CONCLUSION: No intracranial abnormality is seen. . Abdomen/Pelvis CT 05/07/18 02:29 CONCLUSION: 1. Enlarged cirrhotic appearing liver with suspected hepatic steatosis. 2. Splenomegaly with varices. The splenomegaly is likely from portal hypertension. 3. Nonobstructing renal stone seen bilaterally. 4. Left renal cysts Discharge Plan - Discharge Disposition Patient Disposition: Discharge Home - Discharge Condition Condition: Stable - Discharge Order Discharge Orders: Discharge Order (Routine); Ordered 05/09/18 Ordered By: Zunilda Casiano - Discharge Details Anticipated Discharge Date: 05/09/18 - Physicians Team Primary Care Provider: Primary Care Georgette Levy Attending Provider: Pura Lezama Other Providers: Joseph Mccullough MD
[2018-05-09 17:51] LABS: Ceruloplasmin 24 mg/dL (18-36)
== END 2018-05-09 11:41 | disposition home or self-care (01) ==
LOC: NEDA 01:02 → NEPE 01:02 → NEPFCDU 04:58 → NEDA 05:00
PROVIDERS: ADMIT Hospitalist; ATTEND Hospitalist
DX: K85.90 Acute pancreatitis without necrosis or infection, unspecified; K31.89 Other diseases of stomach and duodenum; K70.30 Alcoholic cirrhosis of liver without ascites; N28.1 Cyst of kidney, acquired; I10 Essential (primary) hypertension; Z80.0 Family history of malignant neoplasm of digestive organs; B19.20 Unspecified viral hepatitis C without hepatic coma; K76.6 Portal hypertension; K76.0 Fatty (change of) liver, not elsewhere classified; F10.10 Alcohol abuse, uncomplicated; R07.9 Chest pain, unspecified; Z79.899 Other long term (current) drug therapy; N20.0 Calculus of kidney; R16.2 Hepatomegaly with splenomegaly, not elsewhere classified